=== PATIENT | male | born 1945 | race Caucasian/White ===

== ENCOUNTER 2016-07-10 12:45 | Inpatient (IN) | payer MEDICARE, OTHER ==
[2016-07-08 11:12] VITALS: BP 138/80
[~2016-07-10] VITALS: Ht 175.3 cm; Wt 81.6 kg
[~2016-07-10 12:45] MED LIST: ASPI-496 PO; ATOR80TA75 PO; BACITRACIN 50,000 UNIT ONE; BACITRACIN OINT 500U/GM, 15 GM ONE; BUPIVACAINE/PF-EPI 0.25% 1:200K ONE; LISI5TAB7 PO; MELO-190 PO; METO25TA35 PO; TADA5TAB2 PO; THROMBIN 20,000 UNIT VIAL TP ONE
[2016-07-10] MEDS ORDERED: LIDOCAINE 1%, 2ML ONE (13:13)
[2016-07-10] MEDS ORDERED: LACTATED RINGERS 1,000 ML IV SCH (13:20)
[2016-07-10] MEDS ORDERED: LIDOCAINE 1%, 2ML SQ PRN (14:00)
[2016-07-10] MEDS ORDERED: FENTANYL PF 250 MCG/5ML ONE ×2 (15:45)
[2016-07-10] MEDS ORDERED: BUPIVACAINE/PF-EPI 0.25% 1:200K ONE (16:33)
[2016-07-10] MEDS ORDERED: BACITRACIN 50,000 UNIT ONE (16:33)
[2016-07-10] MEDS ORDERED: THROMBIN 20,000 UNIT VIAL TP ONE (16:33)
[2016-07-10] MEDS ORDERED: PROPOFOL 10 MG/ML, 20ML ONE (16:36)
[2016-07-10] MEDS ORDERED: DEXAMETHASONE 4 MG/ML, 5ML ONE (16:36)
[2016-07-10] MEDS ORDERED: hydrALAzine 20 MG/ML, 1ML IV PRN (19:30)
[2016-07-10] MEDS ORDERED: MEPERIDINE/PF 25MG/0.5ML IVPush PRN (19:30)
[2016-07-10] MEDS ORDERED: METOPROLOL 1 MG/ML, 5ML IV PRN (19:30)
[2016-07-10] MEDS ORDERED: HYDROmorphone 1 MG/ML, 1ML IV PRN (19:30)
[2016-07-10] MEDS ORDERED: HYDROcodone/APAP 7.5-325MG/15ML UDC PO PRN (19:30)
[2016-07-10] MEDS ORDERED: ACETAMINOPHEN 325 MG TABLET PO PRN (19:30)
[2016-07-10] MEDS ORDERED: HYDROcodone/APAP 7.5-325MG/15ML UDC ONE (19:38)
[2016-07-10] MEDS ORDERED: MEPERIDINE/PF 25MG/0.5ML ONE (19:38)
[2016-07-10] MEDS ORDERED: FENTANYL PF 100 MCG/2ML ONE (19:44)
[2016-07-10] MEDS: FENTANYL PF 100 MCG/2ML IV PRN ×2 (19:45→19:55)
[2016-07-10 20:30] VITALS: BP 130/80
[2016-07-10] MEDS ORDERED: PHARMACY MAY ADJ FOR RENAL FX MC PRN (21:00)
[2016-07-10] MEDS: LISINOPRIL 5 MG TABLET PO SCH (21:00)
[2016-07-10] MEDS ORDERED: MAGNESIUM HYDROXIDE 8%, 30ML UDC PO PRN (23:00)
[2016-07-10] MEDS ORDERED: morphine SULFATE 10 MG/ML, 1ML IV PRN ×2 (23:00)
[2016-07-10] MEDS ORDERED: DIPHENHYDRAMINE 50 MG/ML, 1ML IM PRN (23:00)
[2016-07-10] MEDS ORDERED: ONDANSETRON 2MG/ML, 2ML IV PRN (23:00)
[2016-07-10] MEDS ORDERED: METHOCARBAMOL 1,000 MG in DEXTROSE 5% 100 ML IV ONE (23:00)
[2016-07-10] MEDS ORDERED: HYDROcodone/APAP 5/325 TABLET PO PRN (23:00)
[2016-07-10] MEDS ORDERED: DIPHENHYDRAMINE 50 MG CAPSULE PO PRN (23:00)
[2016-07-10] MEDS ORDERED: BISACODYL 10 MG SUPP PR PRN (23:00)
[2016-07-10] MEDS ORDERED: OXYcodone/APAP 5/325MG TABLET PO PRN (23:00)
[2016-07-11 00:05] VITALS: BP 114/67
[2016-07-11] MEDS: ATORVASTATIN 80 MG TABLET PO SCH ×2 (00:08→20:27)
[2016-07-11] MEDS: NS + 20MEQ KCL 1,000 ML IV SCH ×3 (00:49→22:49)
[2016-07-11] MEDS: OXYcodone/APAP 10/325MG TABLET PO PRN ×5 (00:55→21:09)
[2016-07-11 03:42] VITALS: BP 102/67
[2016-07-11] MEDS: CEFAZOLIN PMX 1GM/50ML 50 ML IVPB SCH ×2 (03:52→11:36)
[2016-07-11] MEDS: METOPROLOL TARTRATE 25 MG TABLET PO SCH ×2 (06:20→18:30)
[2016-07-11] MEDS: METHOCARBAMOL 750 MG in DEXTROSE 5% 100 ML IV SCH ×3 (06:50→22:44)
[2016-07-11 07:42] VITALS: BP 104/61
[2016-07-11] MEDS: SENNA/DOCUSATE TABLET PO SCH ×2 (08:25→20:27)
[2016-07-11 13:12] VITALS: BP 101/63
[2016-07-11 18:26] VITALS: BP 98/56
[2016-07-11 20:00] VITALS: BP 113/66
[2016-07-11] MEDS: LISINOPRIL 5 MG TABLET PO SCH (20:27)
[2016-07-12] MEDS: OXYcodone/APAP 10/325MG TABLET PO PRN ×5 (01:52→22:34)
[2016-07-12 02:00] VITALS: BP 98/55
[2016-07-12] MEDS: METOPROLOL TARTRATE 25 MG TABLET PO SCH ×2 (06:00→17:15)
[2016-07-12 06:25] VITALS: BP 90/47
[2016-07-12] MEDS: METHOCARBAMOL 750 MG in DEXTROSE 5% 100 ML IV SCH ×3 (06:52→22:36)
[2016-07-12 07:19] VITALS: BP 98/62
[2016-07-12] MEDS: SENNA/DOCUSATE TABLET PO SCH ×2 (08:22→22:35)
[2016-07-12] MEDS ORDERED: MAGNESIUM HYDROXIDE 8%, 30ML UDC PO ONE (08:30)
[2016-07-12] MEDS: NS + 20MEQ KCL 1,000 ML IV SCH ×2 (08:38→22:44)
[2016-07-12 14:28] VITALS: BP 115/69
[2016-07-12 17:13] VITALS: BP 95/55
[2016-07-12 19:03] VITALS: BP 116/68
[2016-07-12] MEDS: LISINOPRIL 5 MG TABLET PO SCH (21:00)
[2016-07-12] MEDS: ATORVASTATIN 80 MG TABLET PO SCH (22:35)
[2016-07-13 03:06] VITALS: BP 127/73
[2016-07-13] MEDS: METOPROLOL TARTRATE 25 MG TABLET PO SCH (05:38)
[2016-07-13] MEDS: SENNA/DOCUSATE TABLET PO SCH (07:32)
[2016-07-13] MEDS: OXYcodone/APAP 10/325MG TABLET PO PRN (07:37)
[2016-07-13 07:55] VITALS: BP 103/54
[2016-07-13] MEDS ORDERED: PNEUMOCOCCAL 23 VACCINE IM-VACC ONE (08:30)
[2016-07-13] MEDS: NS + 20MEQ KCL 1,000 ML IV SCH (09:13)
[2016-07-13 10:25] VITALS: BP 107/70
[2016-07-13] MEDS ORDERED: OXYC-229 PO (10:33)
[2016-07-13] MEDS ORDERED: METH750T87 PO (10:33)
[2016-07-13] MEDS ORDERED: SENN8.6T4 PO (10:34)
[2016-07-13] MEDS ORDERED: CALC300T5 PO (10:35)
[2016-07-13] MEDS ORDERED: MULT-658 PO (10:35)
== END 2016-07-13 11:06 | disposition home or self-care (01) | DRG 460 ==
LOC: ORIP 12:45 → 4NOR 20:47
PROVIDERS: ADMIT Neurological Surgery; ATTEND Neurological Surgery
PROC: 0SB20ZZ Excision of Lumbar Vertebral Disc, Open Approach (ICD-10-PCS; 2016-07-10)
PROC: 0SG00A1 (ICD-10-PCS; principal; 2016-07-10 15:00)
DX: M43.16 Spondylolisthesis, lumbar region (principal); M48.06 Spinal stenosis, lumbar region; M19.90 Unspecified osteoarthritis, unspecified site; Z88.0 Allergy status to penicillin; Z82.49 Family history of ischemic heart disease and other diseases of the circulatory system; Z85.9 Personal history of malignant neoplasm, unspecified; M71.38 Other bursal cyst, other site
CPT/HCPCS: 72100; 90732; C1713; C9359; J0690; J1100; J2175; J2704; J3010; J3480; J3490; J2800; J7120